=== PATIENT | male | born 1940 | race Caucasian/White ===

== ENCOUNTER → 2022-05-05 | Outpatient (CLI) | payer MEDICARE ==
--- NOTE | 2022-05-06 06:22 | MR ---
EXAMINATION TYPE: MR Prostate wo/w con DATE OF EXAM: 05/05/2022 COMPARISON: None. INDICATION: Elevated PSA. prior biopsy PSA: 13.34 ng/ml on April 11, 2022 Recent Biopsy and Date: November 14, 2021 Pathology Report (If Applicable): All benign TECHNIQUE: Examination was performed using a 3T MRI without an endorectal coil. Multiparametric imaging was perf ormed with T2 mutliplanar sequences, axial diffusion weighted imaging and dynamic contrast enhanced i maging, utilizing 10 mL intravenous Gadavist gadolinium contrast. FINDINGS: PROSTATE VOLUME: 5.0 cm SI x 3.7 cm AP x 6.0 cm LR Vol= 58.12 cc PSA DENSITY: 0.23 ng/ml/cc Peripheral zone shows some areas of slight meniscus signal on ADC mapping without significant restric heavenly diffusion. No gross hypointense areas on T2-weighted imaging. Central zone is overall heterogeneo us and prominent expanding into bladder lumen. No suspicious areas of diminished T2 signal noted. No areas of restricted diffusion identified. No increased T1 signal on T1-weighted images to suggest blo od product. Prostate capsule is maintained. Seminal vesicles appear within normal limits. Mild concentric bladder wall thickening and minimal trabeculation. Sigmoid colonic diverticulosis is seen. Visualized osseous structures are intact. Small fat-containing right inguinal hernia is noted. IMPRESSION: Enlarged prostate consistent with BPH. A focus of clinically significant cancer is not identified. Highest Assessment Category: 2 MRI Stage: T0 N0 M0 based on review of pelvic images. False negative rates for MRI range from 5-20% depending on risk profile. Assessment Categories: 1 ? Very low (clinically significant cancer is highly unlikely to be present) 2 ? Low (clinically significant cancer is unlikely to be present) 3 ? Intermediate (the presence of clinically significant cancer is equivocal) 4 ? High (clinically significant cancer is likely to be present) 5 ? Very high (clinically significant cancer is highly likely to be present)
== END | disposition home or self-care (01) ==
LOC: RADMRIMAIN 11:45
PROVIDERS: ATTEND Urology
DX: N40.0 Benign prostatic hyperplasia without lower urinary tract symptoms (principal); R97.20 Elevated prostate specific antigen [PSA]
CPT/HCPCS: 72197; A9585

== ENCOUNTER → 2022-09-13 | Outpatient (CLI) | payer MEDICARE | END | disposition home or self-care (01) | LOC: LABWHC1 10:28 | PROVIDERS: ATTEND Urology | DX: R97.20 Elevated prostate specific antigen [PSA] (principal) | CPT/HCPCS: 36415; 84153 ==

== ENCOUNTER → 2023-03-13 | Outpatient (CLI) | payer MEDICARE | END | disposition home or self-care (01) | LOC: LABWHC1 10:05 | PROVIDERS: ATTEND Urology | DX: R97.20 Elevated prostate specific antigen [PSA] (principal) | CPT/HCPCS: 36415; 84153 ==

== ENCOUNTER 2023-03-17 08:48 | Emergency (ER) | payer MEDICARE ==
[2023-03-17 09:04] VITALS: RESP 18
[2023-03-17] MEDS ORDERED: SODIUM CHLORIDE 0.9% 1,000 ML IV STA (09:12)
[2023-03-17] MEDS ORDERED: PANTOPRAZOLE 40 MG/10 ML VIAL IVP ONE (09:12)
--- NOTE | 2023-03-17 09:29 | ED ---
General Adult HPI - General Chief complaint: GI Bleed Stated complaint: Chest pains/sob Time Seen by Provider: 03/17/23 08:53 Source: patient Mode of arrival: ambulatory Limitations: no limitations - History of Present Illness Initial comments: Dictation was produced using [employer] dictation software. please excuse any grammatical, word or spelling errors. Chief Complaint: 82-year-old male presents for dizziness and syncope History of Present Illness: And is an 82-year-old male who takes anticoagulation medications for A. fib. States that her last 2-3 days he's been feeling dizzy and lightheaded. Swirsky stands. Patient has had reported jet black stool for the last 48 hours. Denies any abdominal pain. He does feel significantly weak. Patient is a history of GI bleed. He has been having bouts of substernal pressure. He denies any chest pain symptoms at this time. States that the pain did radiate to his back. Nonpitting to the shoulders or jaw. No associated with diaphoresis. Patient has no history of coronary artery disease. The ROS documented in this emergency department record has been reviewed and confirmed by me. Those systems with pertinent positive or negative responses have been documented in the HPI. All other systems are other negative and/or noncontributory. - Related Data Home Medications Medication Instructions Recorded Confirmed Apixaban [Eliquis] 5 mg PO BID 03/17/23 03/17/23 Atorvastatin [Lipitor] 5 mg PO DAILY 03/17/23 03/17/23 Enalapril [Vasotec] 20 mg PO BID 03/17/23 03/17/23 Furosemide [Lasix] 30 mg PO DAILY 03/17/23 03/17/23 Labetalol HCl 100 mg PO BID 03/17/23 03/17/23 hydrALAZINE HCL [Apresoline] 100 mg PO BID 03/17/23 03/17/23 metFORMIN HCL [Glucophage] 500 mg PO DAILY 03/17/23 03/17/23 Allergies Allergy/AdvReac Type Severity Reaction Status Date / Time No Known Allergies Allergy Verified 03/17/23 10:27 Review of Systems ROS Statement: Those systems with pertinent positive or pertinent negative responses have been documented in the HPI. ROS Other: All systems not noted in ROS Statement are negative. Past Medical History Past Medical History: Atrial Fibrillation, Diabetes Mellitus, Hypertension History of Any Multi-Drug Resistant Organisms: None Reported Past Surgical History: Appendectomy Past Psychological History: No Psychological Hx Reported Smoking Status: Former smoker Past Alcohol Use History: Occasional Past Drug Use History: None Reported General Exam - General Exam Comments Initial Comments: PHYSICAL EXAM: General Impression: Alert and oriented x3, not in acute distress HEENT: Normocephalic atraumatic, extra-ocular movements intact, pupils equal and reactive to light bilaterally, mucous membranes moist. Cardiovascular: Heart regular rate and rhythm Chest: Able to complete full sentences, no retractions, no tachypnea Abdomen: abdomen soft, non-tender, non-distended, no organomegaly Musculoskeletal: Pulses present and equal in all extremities, no peripheral edema Motor: no focal deficits noted Neurological: CN II-XII grossly intact, no focal motor or sensory deficits noted Skin: Intact with no visualized rashes Psych: Normal affect and mood Rectal exam: Melanotic substance on digital rectal exam Limitations: no limitations Course Vital Signs 03/17/23 08:57 Temperature 98.2 F Pulse Rate 58 L Respiratory 18 Rate Blood Pressure 82/48 O2 Sat by Pulse 99 Oximetry - Reevaluation(s) Reevaluation #1: 03/17/23 09:29 Patient seen and evaluated initially in room #25. He was moved to trauma bay. Vital signs reviewed. Initial blood pressures 82/48. Some history obtained from . She states that she see comprised at the stable. He did not fall. 03/17/23 09:29 EKG Findings - EKG Comments: EKG Findings:: My EKG interpretation: Ventricular rate 63, A. fib, QRS 105, QTc 434. No OK prolongation, no QTC prolongation, no ST or T-wave changes noted. Overall, this EKG is unremarkable Medical Decision Making - Medical Decision Making Was pt. sent in by a medical professional or institution (, PA, TRADE EMBALMER, urgent care, hospital, or detention...) When possible be specific @ -No Did you speak to anyone other than the patient for history (EMS, parent, family, police, friend...)? What history was obtained from this source @ -No Did you review nursing and triage notes (agree or disagree)? Why? @ -I reviewed and agree with nursing and triage notes Were old charts reviewed (outside hosp., previous admission, EMS record, old EKG, old radiological studies, urgent care reports/EKG's, detention records)? Report findings @ -No old charts were reviewed Differential Diagnosis (chest pain, altered mental status, abdominal pain women, abdominal pain men, vaginal bleeding, musculoskeletal, weakness, fever, dyspnea, syncope, headache, dizziness, GI bleed, back pain, seizure, CVA, palpatations, mental health)? @ -Differential GI Bleed: Esophageal varices, aortoenteric fistula, Keiko-Zamudio, gastritis, peptic ulcer disease, diverticulosis, inflammatory bowel disease, hemorrhoids, fissure, colitis, malignancy, Meckels diverticulum, this is not meant to be an all- inclusive list. EKG interpreted by me (3pts min.). @ -See above X-rays interpreted by me (1pt min.). @ -None done CT interpreted by me (1pt min.). @ -None done U/S interpreted by me (1pt. min.). @ -None done What testing was considered but not performed or refused? (CT, X-rays, U/S, labs)? Why? @ -None What meds were considered but not given or refused? Why? @ -None Did you discuss the management of the patient with other professionals (professionals i.e. , PA, TRADE EMBALMER, lab, RT, psych nurse, social contact worker, sweater operator, teacher, senior grants officer, counseling case manager)? Give summary @ -Case discussed with [facility] transfer line for ER to ER transfer Was smoking cessation discussed for >3mins.? @ -No Was critical care preformed (if so, how long)? @ -Yes, 33 minutes Were there social determinants of health that impacted care today? How? (Homelessness, low income, unemployed, alcoholism, drug addiction, transportation, low edu. Level, literacy, decrease access to med. care, detention, rehab)? @ -No Was there de-escalation of care discussed even if they declined (Discuss DNR or withdrawal of care, Hospice)? DNR status @ -No What co-morbidities impacted this encounter? (DM, HTN, Smoking, COPD, CAD, Cancer, CVA, ARF, Chemo, Hep., AIDS, mental health diagnosis, sleep apnea, morbid obesity)? @ -Anticoagulation use Was patient admitted / discharged? Hospital course, mention meds given and route, prescriptions, significant lab abnormalities, going to OR and other pertinent info. @ -82-year-old male past medical history A. fib on anticoagulation use presents with dizziness, syncope and GI bleed. Vital signs upon arrival shows blood pressure 82/48. Patient given 1 L of IV fluids with improvement of blood pressure to 103/61. Patient reevaluated at the bedside at 1033 and found to be stable medical condition. Laboratory evaluation shows hemoglobin of 8.4. In 2013 he had a hemoglobin of 15.7. Rest of labs within acceptable limits. Stool occult blood positive. Patient given 1 unit of PRBCs for symptomatic anemia. Patient given Protonix. Patient will be transferred to [facility] for ER to ER transfer. Spoke with Dr. Bhagat GI specialist from [facility] and Dr. Clemons for transfer. Undiagnosed new problem with uncertain prognosis? @ -No Drug Therapy requiring intensive monitoring for toxicity (Heparin, Nitro, Insulin, Cardizem)? @ -No Were any procedures done? @ -No Diagnosis/symptom? Acute, or Chronic, or Acute on Chronic? Uncomplicated (without systemic symptoms) or Complicated (systemic symptoms)? @ -GI bleed, complicated by symptomatic anemia Side effects of treatment? @ -No Exacerbation, Progression, or Severe Exacerbation? @ -No Poses a threat to life or bodily function? How? (Chest pain, USA, [place], pneumonia, PE, COPD, DKA, ARF, appy, cholecystitis, CVA, Diverticulitis, Homicidal, Suicidal, threat to staff... and all critical care pts) @ -No - Lab Data Result diagrams: 03/17/23 09:23 03/17/23 09:23 Lab Results 03/17/23 03/17/23 03/17/23 Range/Units 09:20 09: 09:23 WBC 8.0 (3.8-10.6) k/uL RBC 2.54 L (4.30-5.90) m/uL Hgb 8.4 L (13.0-17.5) gm/dL Hct 25.2 L (39.0-53.0) % MCV 99.1 (80.0-100.0) fL MCH 33.1 (25.0-35.0) pg MCHC 33.4 (31.0-37.0) g/dL RDW 13.9 (11.5-15.5) % Plt Count 224 (150-450) k/uL MPV 7.9 Neutrophils % 74 % Lymphocytes % 19 % Monocytes % 4 % Eosinophils % 2 % Basophils % 0 % Neutrophils # 5.9 (1.3-7.7) k/uL Lymphocytes # 1.5 (1.0-4.8) k/uL Monocytes # 0.3 (0-1.0) k/uL Eosinophils # 0.1 (0-0.7) k/uL Basophils # 0.0 (0-0.2) k/uL PT 11.2 (9.0-12.0) sec INR 1.1 (<1.2) APTT 20.4 L (22.0-30.0) sec Sodium (137-145) mmol/L Potassium (3.5-5.1) mmol/L Chloride (98-107) mmol/L Carbon Dioxide (22-30) mmol/L Anion Gap mmol/L BUN (9-20) mg/dL Creatinine (0.66-1.25) mg/dL Est GFR (CKD-EPI)AfAm (>60 ml/min/1.73 sqM) Est GFR (CKD-EPI)NonAf (>60 ml/min/1.73 sqM) Glucose (74-99) mg/dL Plasma Lactic Acid Memo (0.7-2.0) mmol/L Calcium (8.4-10.2) mg/dL Magnesium (1.6-2.3) mg/dL Total Bilirubin (0.2-1.3) mg/dL AST (17-59) U/L ALT (4-49) U/L Alkaline Phosphatase (38-126) U/L Troponin I (0.000-0.034) ng/mL Total Protein (6.3-8.2) g/dL Albumin (3.5-5.0) g/dL Stool Occult Blood (Negative) Blood Type B Positive Blood Type Confirm Blood Type Recheck No Previous Record Bld Type Recheck Status CABO Indicated Antibody Screen NEGATIVE Crossmatch See Detail Spec Expiration Date 03/20/2023 - 232203/17/23 03/17/23 03/17/23 Range/Units : 09: 09:23 WBC (3.8-10.6) k/uL RBC (4.30-5.90) m/uL Hgb (13.0-17.5) gm/dL Hct (39.0-53.0) % MCV (80.0-100.0) fL MCH (25.0-35.0) pg MCHC (31.0-37.0) g/dL RDW (11.5-15.5) % Plt Count (150-450) k/uL MPV Neutrophils % % Lymphocytes % % Monocytes % % Eosinophils % % Basophils % % Neutrophils # (1.3-7.7) k/uL Lymphocytes # (1.0-4.8) k/uL Monocytes # (0-1.0) k/uL Eosinophils # (0-0.7) k/uL Basophils # (0-0.2) k/uL PT (9.0-12.0) sec INR (<1.2) APTT (22.0-30.0) sec Sodium 138 (137-145) mmol/L Potassium 4.5 (3.5-5.1) mmol/L Chloride 109 H (98-107) mmol/L Carbon Dioxide 23 (22-30) mmol/L Anion Gap 6 mmol/L BUN 37 H (9-20) mg/dL Creatinine 0.85 (0.66-1.25) mg/dL Est GFR (CKD-EPI)AfAm >90 (>60 ml/min/1.73 sqM) Est GFR (CKD-EPI)NonAf 82 (>60 ml/min/1.73 sqM) Glucose 170 H (74-99) mg/dL Plasma Lactic Acid Memo 1.8 (0.7-2.0) mmol/L Calcium 8.3 L (8.4-10.2) mg/dL Magnesium 1.9 (1.6-2.3) mg/dL Total Bilirubin 0.6 (0.2-1.3) mg/dL AST 24 (17-59) U/L ALT 19 (4-49) U/L Alkaline Phosphatase 47 (38-126) U/L Troponin I <0.012 (0.000-0.034) ng/mL Total Protein 5.6 L (6.3-8.2) g/dL Albumin 3.1 L (3.5-5.0) g/dL Stool Occult Blood (Negative) Blood Type Blood Type Confirm Blood Type Recheck Bld Type Recheck Status Antibody Screen Crossmatch Spec Expiration Date 03/17/23 03/17/23 Range/Units : 09:25 WBC (3.8-10.6) k/uL RBC (4.30-5.90) m/uL Hgb (13.0-17.5) gm/dL Hct (39.0-53.0) % MCV (80.0-100.0) fL MCH (25.0-35.0) pg MCHC (31.0-37.0) g/dL RDW (11.5-15.5) % Plt Count (150-450) k/uL MPV Neutrophils % % Lymphocytes % % Monocytes % % Eosinophils % % Basophils % % Neutrophils # (1.3-7.7) k/uL Lymphocytes # (1.0-4.8) k/uL Monocytes # (0-1.0) k/uL Eosinophils # (0-0.7) k/uL Basophils # (0-0.2) k/uL PT (9.0-12.0) sec INR (<1.2) APTT (22.0-30.0) sec Sodium (137-145) mmol/L Potassium (3.5-5.1) mmol/L Chloride (98-107) mmol/L Carbon Dioxide (22-30) mmol/L Anion Gap mmol/L BUN (9-20) mg/dL Creatinine (0.66-1.25) mg/dL Est GFR (CKD-EPI)AfAm (>60 ml/min/1.73 sqM) Est GFR (CKD-EPI)NonAf (>60 ml/min/1.73 sqM) Glucose (74-99) mg/dL Plasma Lactic Acid Memo (0.7-2.0) mmol/L Calcium (8.4-10.2) mg/dL Magnesium (1.6-2.3) mg/dL Total Bilirubin (0.2-1.3) mg/dL AST (17-59) U/L ALT (4-49) U/L Alkaline Phosphatase (38-126) U/L Troponin I (0.000-0.034) ng/mL Total Protein (6.3-8.2) g/dL Albumin (3.5-5.0) g/dL Stool Occult Blood Positive (Negative) Blood Type Blood Type Confirm B Positive Blood Type Recheck Bld Type Recheck Status Antibody Screen Crossmatch Spec Expiration Date Disposition Clinical Impression: GI bleed, Symptomatic anemia Disposition: OTHER INSTITUTION NOT DEFINED Condition: Serious Referrals: Bairon Li MD [Primary Care Provider] - 1-2 days Time of Disposition: 10:54 - Out of Hospital Transfer - Req. Specs Out of Hospital Transfer - Requested Specifics: Other Emergency Center ([facility])
--- NOTE | 2023-03-17 09:35 | XR ---
EXAMINATION TYPE: XR chest 1V portable DATE OF EXAM: 03/17/2023 9:31 AM COMPARISON: None TECHNIQUE: XR chest 1V portable Portable AP radiograph of the chest. CLINICAL INDICATION:Male, 82 years old with history of gi bleed; FINDINGS: Lungs/Pleura: There is no evidence of pleural effusion, focal consolidation, or pneumothorax. Pulmonary vascularity: Unremarkable. Heart/mediastinum: Cardiomediastinal silhouette is enlarged. Musculoskeletal: No acute osseous pathology. Degenerative changes of the thoracic spine. IMPRESSION: 1. No acute cardiopulmonary disease/process. 2. Cardiomegaly.
[2023-03-17 09:56] LABS: Basophils % (A) 0 %; Eosinophils # (A) 0.1 k/uL (0-0.7); Eosinophils % (A) 2 %; HCT 25.2 % (39.0-53.0); HGB 8.4 gm/dL (13.0-17.5); Lymphocytes # (A) 1.5 k/uL (1.0-4.8); Lymphocytes % (A) 19 %; MCH 33.1 pg (25.0-35.0); MCHC 33.4 g/dL (31.0-37.0); MCV 99.1 fL (80.0-100.0); Mean Platelet Volume 7.9; Monocytes # (A) 0.3 k/uL (0-1.0); Monocytes % (A) 4 %; Neutrophils # (A) 5.9 k/uL (1.3-7.7); Neutrophils % (A) 74 %; Platelet Count 224 k/uL (150-450); RBC 2.54 m/uL (4.30-5.90); RDW 13.9 % (11.5-15.5)
[2023-03-17 10:05] LABS: ALT 19 U/L (4-49); AST 24 U/L (17-59); African American GFR (CKD) >90 (>60 ml/min/1.73 sqM); Albumin 3.1 g/dL (3.5-5.0); Alkaline Phosphatase 47 U/L (38-126); Anion Gap 6 mmol/L; Blood Urea Nitrogen 37 mg/dL (9-20); Calcium 8.3 mg/dL (8.4-10.2); Carbon Dioxide 23 mmol/L (22-30); Chloride 109 mmol/L (98-107); Glucose 170 mg/dL (74-99); Magnesium 1.9 mg/dL (1.6-2.3); Non-African American GFR(CKD) 82 (>60 ml/min/1.73 sqM); Potassium 4.5 mmol/L (3.5-5.1); Sodium 138 mmol/L (137-145); Total Bilirubin 0.6 mg/dL (0.2-1.3); Total Protein 5.6 g/dL (6.3-8.2)
[2023-03-17 10:13] LABS: INR 1.1 (<1.2); Prothrombin Time 11.2 sec (9.0-12.0)
[2023-03-17 10:17] LABS: Partial Thromboplastin Time 20.4 sec (22.0-30.0)
[2023-03-17 11:48] VITALS: TEMP 98.1
[2023-03-17 13:39] VITALS: BP 115/68; PULSE 68
== END 2023-03-17 14:42 | disposition other institution (70) ==
LOC: EC 08:48
DX: K92.2 Gastrointestinal hemorrhage, unspecified (principal); I48.91 Unspecified atrial fibrillation; E11.9 Type 2 diabetes mellitus without complications; I10 Essential (primary) hypertension; Z87.891 Personal history of nicotine dependence; Z79.01 Long term (current) use of anticoagulants; Z79.84 Long term (current) use of oral hypoglycemic drugs; Z79.899 Other long term (current) drug therapy
CPT/HCPCS: 36415; 93005; 86900; 86901; 80053; 83605; 83735; 84484; 85025; 85610; 85730; 86850; 86920; 82272; 71045; 99285; 96374; 96361; 36430; P9016; C9113

== ENCOUNTER 2023-11-06 17:35 | Emergency (ER) | payer MEDICARE ==
[2023-11-06 18:04] VITALS: RESP 18
--- NOTE | 2023-11-06 19:32 | XR ---
PROCEDURE: XR knee complete RT - 3V DATE AND TIME: 11/06/2023 6:40 PM CLINICAL INDICATION: PHH; pain TECHNIQUE: Department protocol COMPARISON: None FINDINGS / IMPRESSION: Small joint effusion is present in the suprapatellar bursa. No acute fracture/malalignment. No focal osseous lesions. Mild tricompartmental osteoporosis changes.
--- NOTE | 2023-11-06 19:51 | ED ---
Extremity Problem HPI - General Chief complaint: Extremity Problem,Nontraumatic Stated complaint: R Leg Injury Time Seen by Provider: 11/06/23 19:10 Source: patient Mode of arrival: wheelchair Limitations: no limitations - History of Present Illness Initial comments: 83-year-old male presenting with chief complaint of right knee pain. Patient was walking up the stairs today when he felt and heard a pop in his right knee. He is unable to bear weight on the knee. Pain is mainly at the posterior portion of the knee. There are some mild swelling as well. No pain in the calf. No numbness or tingling. - Related Data Home Medications Medication Instructions Recorded Confirmed Apixaban [Eliquis] 5 mg PO BID 03/17/23 03/17/23 Atorvastatin [Lipitor] 5 mg PO DAILY 03/17/23 03/17/23 Enalapril [Vasotec] 20 mg PO BID 03/17/23 03/17/23 Furosemide [Lasix] 30 mg PO DAILY 03/17/23 03/17/23 Labetalol HCl 100 mg PO BID 03/17/23 03/17/23 hydrALAZINE HCL [Apresoline] 100 mg PO BID 03/17/23 03/17/23 metFORMIN HCL [Glucophage] 500 mg PO DAILY 03/17/23 03/17/23 Previous Rx's Medication Instructions Recorded Acetaminophen-Codeine 300-30mg 1 tab PO Q6H PRN 3 Days #12 tablet 11/06/23 [Tylenol w/codeine #3] Allergies Allergy/AdvReac Type Severity Reaction Status Date / Time No Known Allergies Allergy Verified 11/06/23 17:48 Review of Systems ROS Statement: Those systems with pertinent positive or pertinent negative responses have been documented in the HPI. ROS Other: All systems not noted in ROS Statement are negative. Past Medical History Past Medical History: Atrial Fibrillation, Diabetes Mellitus, Hypertension History of Any Multi-Drug Resistant Organisms: None Reported Past Surgical History: Appendectomy Past Psychological History: No Psychological Hx Reported Smoking Status: Former smoker Past Alcohol Use History: Occasional Past Drug Use History: None Reported General Exam Limitations: no limitations General appearance: alert, in no apparent distress Head exam: Present: atraumatic, normocephalic Eye exam: Present: normal appearance, EOMI Neck exam: Present: normal inspection Respiratory exam: Absent: respiratory distress Cardiovascular Exam: Present: regular rate Right Knee exam: Present: normal inspection, tenderness, swelling. Absent: full ROM Neurological exam: Present: alert, oriented X3 Psychiatric exam: Present: normal affect, normal mood Skin exam: Present: normal color Course Vital Signs 11/06/23 11/06/23 17:44 19:57 Temperature 97.6 F 98.2 F Pulse Rate 64 62 Respiratory 18 18 Rate Blood Pressure 152/73 173/82 O2 Sat by Pulse 99 99 Oximetry Medical Decision Making - Medical Decision Making Was pt. sent in by a medical professional or institution (, PA, YARD PILOT, urgent care, hospital, or [facility]...) When possible be specific @ -No Did you speak to anyone other than the patient for history (EMS, parent, family, police, friend...)? What history was obtained from this source @ -No Did you review nursing and triage notes (agree or disagree)? Why? @ -I reviewed and agree with nursing and triage notes Were old charts reviewed (outside hosp., previous admission, EMS record, old EKG, old radiological studies, urgent care reports/EKG's, [facility] records)? Report findings @ -No old charts were reviewed Differential Diagnosis (chest pain, altered mental status, abdominal pain women, abdominal pain men, vaginal bleeding, weakness, fever, dyspnea, syncope, headache, dizziness, GI bleed, back pain, seizure, CVA, palpatations, mental health, musculoskeletal)? @ -Differential Musculoskeletal Muscular strain, contusion, ligament sprain, fracture, arthritis, septic arthritis, bursitis, cellulitis, muscle spasm, nerve compression, DVT, arterial occlusion, herpes zoster, electrolyte abnormality, tumor.... This is not meant to be in all inclusive list EKG interpreted by me (3pts min.). @ -As above X-rays interpreted by me (1pt min.). @ -X-ray shows small joint effusion present in the suprapatellar bursa. No acute fracture or malalignment. No focal osseous lesions. Mild tricompartmental osteoporosis changes. CT interpreted by me (1pt min.). @ -None done U/S interpreted by me (1pt. min.). @ -None done What testing was considered but not performed or refused? (CT, X-rays, U/S, labs)? Why? @ -None What meds were considered but not given or refused? Why? @ -None Did you discuss the management of the patient with other professionals (professionals i.e. Dr., PA, YARD PILOT, lab, RT, psych nurse, social media designer, care professionals, teacher, custom protection officer, shoe parts caser)? Give summary @ -No Was smoking cessation discussed for >3mins.? @ -No Was critical care preformed (if so, how long)? @ -No Were there social determinants of health that impacted care today? How? (Homelessness, low income, unemployed, alcoholism, drug addiction, transportation, low edu. Level, literacy, decrease access to med. care, correction, rehab)? @ -No Was there de-escalation of care discussed even if they declined (Discuss DNR or withdrawal of care, Hospice)? DNR status @ -No What co-morbidities impacted this encounter? (DM, HTN, Smoking, COPD, CAD, Cancer, CVA, ARF, Chemo, Hep., AIDS, mental health diagnosis, sleep apnea, morbid obesity)? @ -None Was patient admitted / discharged? Hospital course, mention meds given and route, prescriptions, significant lab abnormalities, going to OR and other pertinent info. @ -83-year-old male presenting with chief complaint of right knee pain. He fell and heard a pop while walking up the stairs today and now is unable to bear weight. X-ray negative for fracture or dislocation. Patient is provided with an order for a walker. Instructed to follow-up with orthopedics. Discharged home. Follow-up with PCP. Report back to ER with any new or worsening symptom s. Discussed return parameters and answered all questions. Patient conveyed verbal understanding and agreed to the plan. I discussed this case in detail with my attending Dr. Ireland Undiagnosed new problem with uncertain prognosis? @ -No Drug Therapy requiring intensive monitoring for toxicity (Heparin, Nitro, Insulin, Cardizem)? @ -No Were any procedures done? @ -No Diagnosis/symptom? @ -Knee injury Acute, or Chronic, or Acute on Chronic? @ -Acute Uncomplicated (without systemic symptoms) or Complicated (systemic symptoms)? @ -Uncomplicated Side effects of treatment? @ -No Exacerbation, Progression, or Severe Exacerbation? @ -No Poses a threat to life or bodily function? How? (Chest pain, USA, [place], pneumonia, PE, COPD, DKA, ARF, appy, cholecystitis, CVA, Diverticulitis, Homicidal, Suicidal, threat to staff... and all critical care pts) @ -No Disposition Clinical Impression: Knee sprain Disposition: HOME SELF-CARE Condition: Good Instructions (If sedation given, give patient instructions): Knee Sprain (ED) Additional Instructions: Follow-up with orthopedics. Report back to ER with any new or worsening symptoms. Prescriptions: Acetaminophen-Codeine 300-30mg [Tylenol w/codeine #3] 1 tab PO Q6H PRN 3 Days #12 tablet PRN Reason: Pain Is patient prescribed a controlled substance at d/c from ED?: No Referrals: Bairon Li MD [Primary Care Provider] - 1-2 days Jg Harris MD [STAFF PHYSICIAN] - 1-2 days Time of Disposition: 19:49
[2023-11-06] MEDS: ACET/COD 300 MG/30 MG STARTER PACK 6 TAB BTL PO STA (19:56)
[2023-11-06 20:18] VITALS: BP 173/82; PULSE 62; TEMP 98.2
== END 2023-11-06 20:01 | disposition home or self-care (01) ==
LOC: EC 17:35
DX: S83.91XA Sprain of unspecified site of right knee, initial encounter (principal); Z87.891 Personal history of nicotine dependence; X50.1XXA Overexertion from prolonged static or awkward postures, initial encounter; Y93.01 Activity, walking, marching and hiking
CPT/HCPCS: 99283

== ENCOUNTER → 2023-11-20 | Outpatient (CLI) | payer MEDICARE ==
--- NOTE | 2023-11-20 11:57 | MR ---
EXAMINATION TYPE: MR knee RT wo con DATE OF EXAM: 11/20/2023 COMPARISON: X-ray 11/06/2023 HISTORY: Pain TECHNIQUE: Multiplanar, multisequence imaging of the right knee is performed without IV contrast. FINDINGS: MEDIAL MENISCUS: There is a grade 3 abnormal signal involving the posterior horn compatible with meni scal tear. LATERAL MENISCUS: There is grade 3 abnormal signal involving the posterior horn compatible with menis jeb tear. CRUCIATE LIGAMENTS: The anterior and posterior cruciate ligaments are intact and unremarkable. COLLATERAL LIGAMENTS: The medial collateral ligament and lateral collateral ligament complex are inta ct and unremarkable. EXTENSOR MECHANISM: Enthesophytes along the upper margin of the patella with mild increased signal in volving the quadriceps tendon may be on the basis of a mild tendinosis. Trace amount of fluid in the suprapatellar bursa. EFFUSION: No significant suprapatellar joint effusion. POPLITEAL CYST: There is a 0.8 x 2.2 x 5.3 cm popliteal fossa cyst. TRICOMPARTMENT SPACES: There is narrowing of the patellofemoral and medial compartment of the joint s pace compatible with mild osteoarthritis. Enthesophytes are seen involving the patella. CARTILAGE: There is loss of the cartilage focally within the medial articular femoral cartilage pratibha tible with grade II chondromalacia. No adjacent marrow edema. BONE MARROW SIGNAL: Tiny areas of abnormal marrow signal involving the patella likely reactive. Additional findings: There is mild subcutaneous edema anteriorly. IMPRESSION: 1. Posterior horn medial and lateral meniscal tear. 2. 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 3. Enthesophytes involving the patella with some increased signal at the insertion of the quadriceps tendon correlate clinically for mild tendinosis. 4. There is a 0.8 x 2.2 x 5.3 cm popliteal fossa cyst.
== END | disposition home or self-care (01) ==
LOC: RADMRIMAIN 10:39
PROVIDERS: ATTEND Orthopaedic Surgery
DX: M17.11 Unilateral primary osteoarthritis, right knee (principal); M23.351 Other meniscus derangements, posterior horn of lateral meniscus, right knee; M71.21 Synovial cyst of popliteal space [Baker], right knee; M94.261 Chondromalacia, right knee

== ENCOUNTER → 2023-12-15 | Outpatient (CLI) | payer MEDICARE ==
--- NOTE | 2023-12-15 12:47 | MR ---
EXAMINATION TYPE: MR Prostate wo/w con DATE OF EXAM: 12/15/2023 9:31 AM COMPARISON: 05/05/2022 CLINICAL INDICATION:Male, 83 years old with history of R97.20 ELEVATED PROSTATE SPECIFIC ANTIGEN [PSA ]; Elevated PSA. TECHNIQUE: Multi-planar, multi-sequence imaging of the pelvis is performed prior to and following the uncomplicated administration of bolus intravenous gadolinium. CONTRAST: 10 Gadavist Interpretive Criteria: PI-RADS v2.1 SERUM PSA: =16.7, =18.55 SURGICAL PATHOLOGY: No data available. FINDINGS: Prostatic dimensions: 5.6 x 5.9 x 4.5 cm. Ellipsoid Volume:77.85 (PSA density=0.24 ng/mL/mL) CENTRAL GLAND (Central and Transition Zones/CZ+TZ): Anterior left peripheral zone near midline of the mid gland high DWI low ADC signal a area measuring 16 x 6 mm PERIPHERAL ZONE (PZ): Bilateral linear, indistinct wedgelike areas of low ADC, and low T2 signal, No evidence of masslike a bnormality, or localized perfusional hypervascularity, to further suggest a focus of clinically signi ficant prostate cancer. (PI-RADS 2) SEMINAL VESICLES (SV): Symmetric and unremarkable. PERIPROSTATIC TISSUES: Unremarkable. LYMPH NODES: No enlarged pelvic lymph node. REMAINING PELVIS: Bladder wall is within normal limits given distention. No abnormal free or organized intrapelvic fluid collection. No pathologic bowel dilation or mural thickening. Colonic diverticula are present. No hernia visualized OSSEOUS STRUCTURES: No suspicious osseous abnormality. IMPRESSION: 1. PI-RADS 5 lesion in the left anterior central mid gland measuring 16 x 6 mm. Tissue sampling recom mended. 2. Moderate BPH, estimated gland volume 77.85 mL. 3. No suspicious osseous lesion. No lymphadenopathy. No evidence of prostate adenocarcinoma involving the periprostatic tissues.
== END | disposition home or self-care (01) ==
LOC: RADMRIMAIN 08:20
PROVIDERS: ATTEND Urology
DX: N40.0 Benign prostatic hyperplasia without lower urinary tract symptoms (principal); R97.20 Elevated prostate specific antigen [PSA]
CPT/HCPCS: 72197; A9585

== ENCOUNTER → 2024-01-20 | Outpatient (CLI) | payer MEDICARE | END | disposition home or self-care (01) | LOC: LABPAT 14:11 | PROVIDERS: ATTEND Urology | DX: Z01.812 Encounter for preprocedural laboratory examination (principal); R97.20 Elevated prostate specific antigen [PSA] | CPT/HCPCS: 87086 ==

== ENCOUNTER 2024-01-27 12:00 | Day surgery (SDC) | payer MEDICARE ==
[2024-01-27] MEDS ORDERED: LACTATED RINGERS 1,000 ML BAG ONE (13:00)
[2024-01-27] MEDS ORDERED: ceFAZolin 10 GM VIAL IVPB ONE (13:00)
[2024-01-27] MEDS ORDERED: SODIUM CHLORIDE 0.9% 50 ML BAG ONE (13:00)
[2024-01-27] MEDS ORDERED: GENTAMICIN 40 MG/ML 2 ML VIAL ONE ×2 (13:07)
[2024-01-27] MEDS ORDERED: PROPOFOL 10 MG/ML 20 ML VIAL IV ONE (14:08)
--- NOTE | 2024-03-01 10:30 | OP ---
OPERATIVE REPORT DATE OF SERVICE : 01/27/2024 PREOPERATIVE DIAGNOSIS: Elevated prostate-specific antigen. POSTOPERATIVE DIAGNOSIS: Elevated prostate-specific antigen. COMPLICATIONS: None. CONDITION: Stable. SPECIMENS: Prostate biopsy. ESTIMATED BLOOD LOSS: 1 mL. INDICATIONS: This is an 83-year-old male who has been having persistently elevated and rising PSA with a highly concerning PSA velocity, has undergone 2 prostate biopsies that were negative, underwent a prostate MRI that showed a PI-RADS 5 lesion along the anterior portion of the prostate. I discussed with him given this finding, I do recommend proceeding with an MRI fusion biopsy as the anterior area is not a typical area that we biopsy with the random biopsies. Discussed this potentially could be malignancies or metastatic lesion, aware the risk of bleeding, infection, sepsis. He understood all the risks and agreed to proceed. OPERATION: The patient was brought to the operating room, he was placed in a left lateral position, sedation was induced. A transrectal ultrasound was inserted per rectum, using Julia machine, the MRI and the ultrasound were matched, at this point, the area of concern was identified, and a total of 4 biopsies were obtained over that area, and additional 12 biopsies were obtained based on standard template for prostate biopsies of the remaining prostate. At this time, the ultrasound was withdrawn. There was no evidence of bleeding. The patient was awakened from anesthesia and taken to Recovery in stable condition. He will follow up in 1 to 2 weeks to review pathology results. CLINTL / DEEDEEN: [id number] /
== END 2024-01-27 15:37 ==
LOC: OR 12:00
PROVIDERS: ATTEND Urology
DX: C61 Malignant neoplasm of prostate (principal); I10 Essential (primary) hypertension; E78.5 Hyperlipidemia, unspecified; I48.91 Unspecified atrial fibrillation; E11.9 Type 2 diabetes mellitus without complications; Z79.01 Long term (current) use of anticoagulants; Z79.84 Long term (current) use of oral hypoglycemic drugs; Z79.899 Other long term (current) drug therapy
CPT/HCPCS: 88305

== ENCOUNTER → 2024-03-16 | Outpatient (CLI) | payer MEDICARE ==
[2024-03-16 19:40] LABS: Basophils # (A) 0.02 X 10*3/uL (0.00-0.10); Basophils % (A) 0.3 %; Eosinophils # (A) 0.15 X 10*3/uL (0.04-0.35); HCT 41.9 % (39.6-50.0); HGB 13.9 g/dL (13.0-17.0); Lymphocytes # (A) 1.45 X 10*3/uL (0.90-5.00); Lymphocytes % (A) 19.6 %; MCHC 33.2 g/dL (32.0-37.0); MCV 93.3 FL (80.0-97.0); Mean Platelet Volume 9.8 FL (9.5-12.2); Monocytes # (A) 0.78 X 10*3/uL (0.20-1.00); Monocytes % (A) 10.5 %; NRBC Per 100 WBC 0 X 10*3/uL (0.00-0.01); Neutrophils # (A) 4.99 X 10*3/uL (1.80-7.70); Neutrophils % (A) 67.3 %; Platelet Count 238 X 10*3/uL (140-440); RBC 4.49 X 10*6/uL (4.40-5.60); RDW 13.6 % (11.5-14.5); WBC 7.41 X 10*3/uL (4.50-10.00)
[2024-03-16 20:20] LABS: BUN/Creat Ratio 19.67 Ratio (12.00-20.00); Blood Urea Nitrogen 17.7 mg/dL (9.0-27.0); Calcium 8.9 mg/dL (8.7-10.3); Carbon Dioxide 25.5 mmol/L (21.6-31.8); Chloride 104 mmol/L (96-109); Glucose 121 mg/dL (70-110); Potassium 3.9 mmol/L (3.5-5.5); Sodium 141 mmol/L (135-145)
== END | disposition home or self-care (01) ==
LOC: LABWHC1 13:09
PROVIDERS: ATTEND Urology
DX: Z01.812 Encounter for preprocedural laboratory examination (principal); C61 Malignant neoplasm of prostate
CPT/HCPCS: 36415; 80048; 85025

== ENCOUNTER → 2024-03-19 | Outpatient (CLI) | payer MEDICARE ==
--- NOTE | 2024-03-20 23:20 | PE ---
EXAMINATION TYPE: PET CT fusion skull to thigh DATE OF EXAM: 03/19/2024 CLINICAL INDICATION:Male, 83 years old with history of [id number] NEOPLASM OF PROSTATE; TECHNIQUE: Following the intravenous administration of 6.43 mCi of Ga-68 Illuccix (PSMA), whole bod y images are performed from the skull base to the midthigh. Images are reviewed on the computer in t he coronal, axial, and sagittal planes. Reconstructed rotating images are created on independent wor kstation and reviewed on the computer. A non-contrast CT is performed in conjunction with the PET s can. CT DLP: 961.72 mGycm, Automated exposure control for dose reduction was used. COMPARISON: CT None, PET/CT None, MRI: 12/15/2023, 05/05/2022 FINDINGS: Mediastinal SUV mean is 1.7. Hepatic parenchyma SUV mean is 10.7. SKULL BASE AND NECK: No suspicious radiotracer activity. CHEST, MEDIASTINUM, AND HILAR REGION: No suspicious radiotracer activity. ABDOMEN AND PELVIS: No suspicious radiotracer activity. Enlarged prostate gland with central calcifications. The prostate gland measures up to 5.6 cm in hoover sverse dimension and indents upon the urinary bladder base. Demonstrates a maximum SUV of 10.9. Radio tracer uptake is identified bilaterally along the anterior mid aspects of the prostate gland more per ipherally. No discrete focal radiotracer uptake identified within several vesicles. No other suspicious radiotracer uptake identified. MUSCULOSKELETAL STRUCTURES: No suspicious radiotracer activity. Left iliac bone sclerotic 1.4 cm lesion with no suspicious radiotracer uptake. Max SUV 1.2. Likely be nign bone island. OTHER CT: Bilateral aphakia. Opacification of the left mastoid air cells. Minimal bilateral carotid b ulb calcifications. Mild cardiomegaly. Small aortic valvular calcifications. Small coronary artery ca lcifications. Small hiatal hernia. Bilateral shoulder arthropathy. Right renal cysts measuring up to 5.3 cm. Minimal atherosclerotic calcification of the aorta and its branches. Tortuosity of the abdomi nal aorta. Colon diverticulosis. Degenerative changes of the visualized spine. Mild S-shaped scolioti c curvature of the visualized spine. IMPRESSION: Focal radiotracer uptake along the anterior bilateral peripheral portions of the prostate gland consi stent reported prostate cancer. No other sites of suspicious radiotracer uptake to suggest metastasis . [facility], , 03/20/2024 11:18 PM
== END | disposition home or self-care (01) ==
LOC: RADPETMAIN 11:30
PROVIDERS: ATTEND Radiology Radiation Oncology
DX: C61 Malignant neoplasm of prostate (principal); I70.0 Atherosclerosis of aorta; N28.1 Cyst of kidney, acquired; K57.30 Diverticulosis of large intestine without perforation or abscess without bleeding; K44.9 Diaphragmatic hernia without obstruction or gangrene; I51.7 Cardiomegaly; H27.03 Aphakia, bilateral
CPT/HCPCS: 78815; A9596

== ENCOUNTER 2024-03-23 12:19 | Day surgery (SDC) | payer MEDICARE ==
[~2024-03-23 12:19] MED LIST: LACTATED RINGERS 1,000 ML IV SCH
[2024-03-23 13:11] VITALS: TEMP 97.3
[2024-03-23 13:20] LABS: Glucose,Whole Blood 95 mg/dL (70-110)
[2024-03-23] MEDS: IV FLUID CONTINUATION 1,000 ML IV ONE (13:21)
[2024-03-23] MEDS ORDERED: fentaNYL (PF) 50 MCG/ML 2 ML AMP ONE (14:02)
[2024-03-23] MEDS ORDERED: PROPOFOL 10 MG/ML 20 ML VIAL IV ONE (14:02)
--- NOTE | 2024-03-23 14:16 | P.HPIHPCON ---
History of Present Illness H&P Date: 03/23/24 Chief Complaint: Prostate cancer This is an 83-year-old male with history of [place] 7 prostate cancer, elected to proceed with radiation therapy, option for SpaceOAR gel placement was discussed with him. Risk benefit and rationale were discussed in details Consent for Procedure: I have explained the operation/procedure to the patient, including the risks, benefits, side effects, alternative therapies (including not receiving the proposed treatment or service), the likelihood of the patient achieving his/her goals, and potential recuperation problems for the procedure/sedation/analgesia, as well as any blood products, if indicated. I also explained to the patient the risks, benefits and side effects of the alternatives, as well as the risks related to not receiving the proposed procedure, care, treatment, or services. Past Medical History Past Medical History: Atrial Fibrillation, Cancer, Diabetes Mellitus, Hyperlipidemia, Hypertension, Osteoarthritis (OA), Prostate Disorder Additional Past Medical History / Comment(s): hx. prostate cancer, lower legs swell History of Any Multi-Drug Resistant Organisms: None Reported Past Surgical History: Appendectomy, Hernia Repair Additional Past Surgical History / Comment(s): colonoscopies Past Anesthesia/Blood Transfusion Reactions: No Reported Reaction Additional Past Anesthesia/Blood Transfusion Reaction / Comment(s): no hx. of transfusion reaction Smoking Status: Former smoker Medications and Allergies Home Medications Medication Instructions Recorded Confirmed Type Apixaban [Eliquis] 5 mg PO BID 03/17/23 03/18/24 History Atorvastatin [Lipitor] 5 mg PO DAILY 03/17/23 03/18/24 History Enalapril [Vasotec] 20 mg PO BID 03/17/23 03/18/24 History Furosemide [Lasix] 30 mg PO DAILY 03/17/23 03/18/24 History Labetalol HCl 100 mg PO BID 03/17/23 03/18/24 History hydrALAZINE HCL [Apresoline] 100 mg PO BID 03/17/23 03/18/24 History metFORMIN HCL [Glucophage] 500 mg PO DAILY 03/17/23 03/18/24 History Allergies Allergy/AdvReac Type Severity Reaction Status Date / Time No Known Allergies Allergy Verified 03/23/24 12:57 Surgical - Exam Vital Signs Temp Pulse Resp BP Pulse Ox 97.3 F L 66 20 141/85 97 03/23/24 13:11 03/23/24 13:11 03/23/24 13:11 03/23/24 13:11 03/23/24 13:11 - General no distress, no pain - Eyes normal ocular movement, no pale - ENT normal nares, normal mucosa - Respiratory normal expansion, normal respiratory effort Assessment and Plan Assessment: OR for SpaceOAR gel placement
[2024-03-23] MEDS: LIDOCAINE 2% INJ 20 MG/ML SQ ONE (14:19)
--- NOTE | 2024-03-23 14:25 | P.OP ---
Date of Procedure: 03/23/24 Preoperative Diagnosis: Prostate cancer Postoperative Diagnosis: same Procedure(s) Performed: SpaceOAR gel placement Implants: SpaceOAR gel Anesthesia: MAC Estimated Blood Loss (ml): 1 Pathology: none sent Indications for Procedure: This is an 83-year-old male with history of [place] 7 prostate cancer, elected to proceed with radiation therapy, option for SpaceOAR gel placement was discussed with him. Risk benefit and rationale were discussed in details Description of Procedure: The patient was taken to the operating room and placed in the dorsolithotomy position, with his legs supported in Vishal stirrups. The external genitalia was prepped and draped sterilely. The transrectal ultrasound probe was placed intrarectally. The prostate was imaged. The probe was then placed within the stabilizing stand. A spinal needle was advanced under ultrasonic guidance to the level of the urogenital diaphragm, and lidocaine was used to infiltrate the tissues as the needle was withdrawn. Next, the SpaceOAR needle was passed through the midline of the perineum, 1-2 cm anterior to the anal opening. The needle was slowly advanced under ultrasonic guidance until the needle tip was located within the fat plane between the prostate and rectum, at the level of the mid prostate gland. The needle was confirmed to be midline on the axial imaging. A small amount of normal saline was injected for hydrodissection. Next, the SpaceOAR components were mixed and loaded into the Y connector per protocol. The Y connector was then connected to the needle, and the components were injected slowly over a course of approximately 10 seconds. A total of 10 ml was injected. Significant distance was created between the prostate and rectum, as desired. It should be noted that at no point was there any concern of rectal perforation. The needle was withdrawn, as well as the transrectal ultrasound probe, and the procedure was terminated. The patient tolerated the procedure well and was taken to the recovery room in stable condition
[2024-03-23 14:43] VITALS: BP 108/71; PULSE 80; RESP 18
== END 2024-03-23 15:14 | disposition home or self-care (01) ==
LOC: OR 12:19
PROVIDERS: ATTEND Urology

== ENCOUNTER → 2024-04-01 | Outpatient (CLI) | payer MEDICARE ==
[2024-04-01 09:12] LABS: Albumin 3.8 g/dL (3.5-5.0); Albumin/Globulin Ratio 1.4; Globulin 2.8 g/dL; Total Bilirubin 1.1 mg/dL (0.2-1.3); Total Protein 6.6 g/dL (6.3-8.2)
[2024-04-01 16:58] LABS: Prostate Specific Antigen 22.8 ng/mL (0.000-6.500)
== END | disposition home or self-care (01) ==
LOC: LABWHC1 08:33
PROVIDERS: ATTEND Radiology Radiation Oncology
DX: C61 Malignant neoplasm of prostate (principal)
CPT/HCPCS: 36415; 80076; 84153; 84403

== ENCOUNTER → 2024-07-07 | Outpatient (CLI) | payer MEDICARE ==
[2024-07-07 15:39] LABS: Prostate Specific Antigen 0.02 ng/mL (0.000-6.500); Testosterone <10.00 ng/dL (86.98-780.10)
== END | disposition home or self-care (01) ==
LOC: LABWHC1 09:34
PROVIDERS: ATTEND Radiology Radiation Oncology
DX: C61 Malignant neoplasm of prostate (principal)
CPT/HCPCS: 36415; 84153; 84403